=== PATIENT | female | born 1965 | race Caucasian/White ===

== ENCOUNTER 2021-03-11 07:38 | Outpatient (REF) | payer OTHER, SELFPAY ==
[2021-03-11 08:24] LABS: COVID-19 Test Positive (Negative)
== END 2021-03-11 07:39 | disposition home or self-care (01) ==
LOC: HO.LAB 07:38
PROVIDERS: Visit Provider Internal Medicine
DX: Z20.822 Contact with and (suspected) exposure to COVID-19 (principal)
CPT/HCPCS: 36415; 87635; C9803

== ENCOUNTER 2021-03-20 07:51 | Outpatient (REF) | payer OTHER, SELFPAY ==
[2021-03-20 08:16] LABS: COVID-19 Test Negative (Negative)
== END 2021-03-20 07:52 | disposition home or self-care (01) ==
LOC: HO.LAB 07:51
PROVIDERS: Visit Provider Internal Medicine
DX: Z20.822 Contact with and (suspected) exposure to COVID-19 (principal)
CPT/HCPCS: 36415; 87635; C9803